=== PATIENT | female | born 1995 | race Caucasian/White ===

== ENCOUNTER 2025-01-31 16:55 | Inpatient (IN) ==
--- NOTE | 2025-01-31 17:09 | Emergency Department Note ---
Impression & Plan Spontaneous vaginal delivery, History of precipitous delivery, Breech delivery ED Provider Note NAME: MICHI MONTERO AGE: 29 SEX: F : 1995 ARRIVES VIA: Ambulance INFORMANT: Patient ED PROVIDER(S): Zeke Hinojosa DO CHIEF COMPLAINT: In labor HPI: Patient is a 29-year-old female G3 who presents to the ER in labor. She believes she is somewhere around 36 weeks . She has only had 1 visit to the OB prior to this. She has had no other care. She is taking no vitamins. EMS was called and en route she started pushing. ADDITIONAL HISTORY OBTAINED: Per HPI Chronic Medical/Social Conditions Affecting Care: Per HPI PAST MEDICAL HISTORY:See Below PAST SURGICAL HISTORY:See Below FAMILY HISTORY:See Below SOCIAL HISTORY:See Below HOME MEDICATIONS:See Below ALLERGIES:See Below VITALS:See Below PHYSICAL EXAMINATION: GENERAL: Sitting up in stretcher, alert, yelling with child laying on stretcher and cord attached EYE EXAM: normal conjunctiva. OROPHARYNX:mucous membranes are moist LUNGS: Clear to auscultation. Normal chest wall mechanics HEART: no murmurs, S1 normal and S2 normal ABDOMEN: abdomen soft, non-tender, normo-active bowel sounds, no masses, no rebound or guarding. : No obvious external tears. Placenta still in the vagina with cord attached to child who is crying UPPER EXTREMITIES: upper extremities are grossly normal. LOWER EXTREMITIES: No pitting edema. NEURO EXAM: Normal sensorium, cranial nerves II-XII grossly intact, normal speech, no gross weakness of arms, no gross weakness of legs. MEDICAL DECISION MAKING: Patient is a 29-year-old female G3 at unknown gestation who is felt to be around 36 weeks who presented to EMS in active labor. She delivered just that she arrived to the ambulance bay. I did present and evaluate her in the ambulance. Child was suctioned and an umbilical cord was clamped. She was transferred to the ER. Umbilical cord was cut by myself at bedside. Patient was transferred to our stretcher and baby was moved into the warmer. I performed gentle massage on the fundus of the uterus and it did tighten up/become firm. OB presented at bedside and delivered the placenta. Please see Dr. Unger note for further details. There is no obvious large vaginal tear that I was able to visualize externally. Patient did not have a significant amount of bleeding.Patient was transferred to L&D. Consults/Care Managements Discussions: Per MDM Triage Nursing notes reviewed. Limited review of prior medical records performed Vital Signs: reviewed and remarkable for no significant abnormalities Differential diagnosis: Differential diagnoses includes but is not limited to gastritis, peptic ulcer disease, GERD, gallbladder disease, pancreatitis, small bowel obstruction, appendicitis, diverticulitis, hernia, urinary tract infection, torsion, perforation, trauma, infectious. ER treatment provided: See below Diagnostics interpreted by me include EKG and cardiac monitoring as listed below: -ECG: none -Laboratory studies:Interpreted by me as stated above in MDM and shown below. Imaging studies: Xrays: As interpreted by me:none CTs show: none Procedures: Umbilical cord: Umbilical cord was clamped on both ends. It was cut with sterile scissors by myself. Small amount of bleeding present following the cut. Good hemostasis following this. Patient and baby tolerated procedure well. Critical Care: None Past Med/Surg History Problem List (Updated 01/31/25 @ 18:50 by Zeke Hinojosa DO) Spontaneous vaginal delivery (Acute) Breech delivery (Acute) History of precipitous delivery (Acute) Medical History (Updated 01/31/25 @ 18:50 by Zeke Hinojosa DO) No significant past medical history Surgical History Hx of tonsillectomy Hx of cholecystectomy Family History Other No significant family history Social History Smoking Status: Former smoker Tobacco Type: Cigarettes Second Hand Exposure: No; Do You Dip or Chew Tobacco: No; Hx Alcohol Use: No Hx Substance Use: Yes Last Used Substance: Hours (ago) Last Used Substance Other:: This AM Preferred Language: Polish Communication Ability: Effective Transliterator Required: No Beliefs That Will Affect Care: None marital status: Single Current Living Situation: Family Current Living Situation Comment: With with mother, father, and two children Other Information That Helps Us Care for You: No Feels Safe at Home: Yes Safety Concerns: Feels Safe At This Time Assistive Devices: None Allergies Allergies Allergy/AdvReac Type Severity Reaction Status Date / Time No Known Allergies Allergy Verified 12/21/19 21:45 Home Meds Home Medications Medication Instructions Recorded Confirmed No Known Home Medications 01/31/25 01/31/25 Results & Data (ED) Vital Signs Vital Signs - 24 hr 01/31/25 16:53 01/31/25 17:10 Temperature 36.6 C Pulse Rate 96 H Respiratory Rate 16 Blood Pressure 136/111 H Blood Pressure Mean 119 Sepsis New/Unexplained Change in Mental Status No Sepsis Action Taken by Nursing No Action Required Laboratory Data 01/31/25 18:13 Administered Medications Oxytocin (Pitocin 30 Units/Nss) 30 units in 500 mls @ 333.333 mls/hr IV .Q1H30M PRN; Protocol PRN Reason: Bleeding Control Stop: 02/03/25 17:38 Last Admin: 01/31/25 18:27 Dose: 20 units/hr, 333.3 mls/hr Documented By: FATIMAH Co-signed By: ORI Ibuprofen (Ibuprofen 600 Mg Tab) 600 mg PO Q4H PRN PRN Reason: Pain/RAWLS/Cramping/Fever Stop: 03/02/25 17:38 Last Admin: 01/31/25 18:31 Dose: 600 mg Documented By: FATIMAH Labetalol HCl (Labetalol Hcl 200 Mg Tab) 200 mg PO TID KADEEM Stop: 03/02/25 18:14 Last Admin: 01/31/25 18:24 Dose: 200 mg Documented By: FATIMAH Discontinued Medications Methylergonovine Maleate (Methylergonovine Maleate 0.2 Mg/Ml Amp) 0.2 mg IM ONE ONE Stop: 01/31/25 17:40 Last Admin: 01/31/25 17:40 Dose: 0.2 mg Documented By: FATIMAH Co-signed By: ORI Oxytocin (Oxytocin 10 Units/Ml Vial) Confirm Administered Dose 10 units .ROUTE .STK-MED ONE Stop: 01/31/25 16:59 Last Admin: 01/31/25 17:10 Dose: 10 units Documented By: FATIMAH Discharge Plan Visit Data Chief Complaint: OB/Uterine Contractions ED Provider: Zeke Hinojosa Discharge Problem: Spontaneous vaginal delivery, History of precipitous delivery, Breech delivery Patient Disposition: Admitted As Inpatient Condition: Fair Discharge Instructions Interventions: ED Discharge Assessment Last Done: 01/31/25 17:30
[2025-01-31] MEDS: OXYTOCIN 10 UNITS/ML VIAL ONE (17:10)
[2025-01-31] MEDS ORDERED: BENZOCAINE 20% SPRY 85 APPLN/85 GM CAN EXT PRN (17:39)
[2025-01-31] MEDS ORDERED: HYDROCORTISONE ACETATE 25 MG SUPP PR PRN (17:39)
[2025-01-31] MEDS ORDERED: DIPHTHER/TETAN/PERTUS Vaccine (Tdap, Adol/Adult) 0.5mL IM ONE (17:39)
[2025-01-31] MEDS ORDERED: ACETAMINOPHEN 325 MG TAB PO PRN (17:39)
[2025-01-31] MEDS ORDERED: ACETAMINOPHEN W/CODEINE #3 1 TAB PO PRN (17:39)
[2025-01-31] MEDS: METHYLERGONOVINE MALEATE 0.2 MG/ML AMP IM ONE (17:40)
--- NOTE | 2025-01-31 17:51 | History & Physical Report ---
Date of Service January 31, 2025 Assessment & Plan (1) History of precipitous delivery: Plan: Routine postdelivery care (2) Breech delivery: Plan: Routine postdelivery care Admission and Anticipated Discharge Date Admission Date: January 31, 2025 History of Present Illness Chief Complaint: Precipitous vaginal breech delivery in the ambulance Primary Care Provider: Primo Adan MD Patient is a 29-year-old 4 para 3. She has had 1 first trimester AB. She is in good general health. She is on no chronic pills or medications. She has had no care. She did not have any ultrasounds. She did not have any home test. States her periods are irregular. She is unsure when her last menstrual period was she thinks it may have been in September. She has a history of a bicornuate uterus. She delivered her first 2 children in the hospital with care. Her first child was born 2020 was a male. weight 6 pounds 5 ounces at 37 weeks gestation. She was induced for preeclampsia. She pushed about 45 minutes. Second child was born 2022 female 6 pounds even. Induction at 37 weeks for preeclampsia pushed for 4 minutes. Patient states that she did not physically look until about a month ago. She started in hard labor about 2 hours prior to arriving at the hospital. And she had a precipitous double footling breech delivery in the ambulance. She stated at that time that the did not cry immediately but cried after suctioning. OB team was present in the ER when she arrived. And she arrived w ith the baby on the litter connected to the umbilical cord. At that time the umbilical cord was cut and the infant was transferred to the [facility] where he was cared for. Placenta was removed intact in the ER. She was given IV Pitocin. Uterus contracted nicely and vaginal bleeding was minimal. She was then taken to maternity for inspection of the perineum. On maternity perineum was intact there were no lacerations. Bleeding was well-controlled. Allergies Allergy/AdvReac Type Severity Reaction Status Date / Time No Known Allergies Allergy Verified 12/21/19 21:45 Home Medications Medication Instructions Recorded Confirmed Type No Known Home Medications 01/31/25 01/31/25 History Past Med/Surg History Problem List (Updated 01/31/25 @ 17:51 by Alan Cortez MD) Breech delivery History of precipitous delivery Medical History (Updated 01/31/25 @ 17:51 by Alan Cortez MD) No significant past medical history Surgical History (Updated 01/31/25 @ 17:48 by Justine Villanueva RN) Hx of tonsillectomy Hx of cholecystectomy Family History Other No significant family history Social History Smoking Status: Unknown if ever smoked Preferred Language: [place] Communication Ability: Effective marital status: Single Feels Safe at Home: Yes Physical Exam Physical Exam: Patient appeared to be a well-developed well-nourished 29-year-old female alert oriented x 3 in distress secondary to labor pains. Heart had a regular rhythm S1 and S2 are normal. Lungs are clear to auscultation and percussion. Trachea was midline there was no cervical adenopathy. Breast exam was normal. Abdomen was soft and nontender. Status post delivery of the . No calf tenderness. Inspection of the perineum revealed no lacerations. Bimanual exam revealed the bleeding to be well-controlled 1 or 2 clots were removed. Results & Data Results & Data Vital Signs (Past 12 Hours) Vital Signs Pulse BP Pulse Ox 01/31/25 17:40 86 152/99 H 99 01/31/25 17:39 83 94 01/31/25 17:35 81 100 01/31/25 17:31 82 100 01/31/25 17:27 96 H 01/31/25 17:26 90 100 01/31/25 17:25 82 149/95 H 01/31/25 17:20 87 100 01/31/25 16:53 96 H 136/111 H Medications Administered IV Pitocin. IM Methergine.
--- NOTE | 2025-01-31 17:56 | Consultation ---
Date of Consultation January 31, 2025 History of Present Illness Requesting Physician: Zeke Hinojosa Reason for Consultation: Precipitous delivery in the ambulance prior to arriving at the emergency room Attending Physician: Alan Cortez MD History of Present Illness Patient had a spontaneous vaginal breech delivery in the ambulance prior to arriving at the emergency room. We were called down prior to the ambulance arriving at the emergency room to deliver any necessary care. On arrival the had already been delivered was attached to the cord . After she arrived the cord was clamped and cut. Infant was transferred for resuscitative care. With fundal massage the placenta was removed intact. IV Pitocin was given. IM Methergine was ordered. After delivery of placenta vaginal bleeding was minimal. Patient was then transferred to the fourth floor for inspection of the perineum further exam. Allergies Allergy/AdvReac Type Severity Reaction Status Date / Time No Known Allergies Allergy Verified 12/21/19 21:45 Home Medications Medication Instructions Recorded Confirmed Type No Known Home Medications 01/31/25 01/31/25 History Patient History Medical History (Updated 01/31/25 @ 17:51 by Alan Cortez MD) No significant past medical history Surgical History Hx of tonsillectomy Hx of cholecystectomy Family History Other No significant family history Social History Smoking Status: Unknown if ever smoked Preferred Language: Kazakh Communication Ability: Effective marital status: Single Feels Safe at Home: Yes Physical Exam Physical Exam: Patient appeared to be well-developed well-nourished 29-year-old white female alert oriented x 3 in distress secondary to labor pains. Heart had a regular rhythm S1 and S2 were normal. Lungs are clear to auscultation percussion. Trachea was midline there was no cervical adenopathy. Abdomen was nontender following delivery of the infant and placenta. No calf tenderness. Inspection of the perineum revealed moderate amount of bleeding no lacerations. Results & Data Vital Signs (Past 12 Hours) Vital Signs Pulse BP Pulse Ox 01/31/25 17:51 82 100 01/31/25 17:45 84 100 01/31/25 17:40 86 152/99 H 99 01/31/25 17:39 83 94 01/31/25 17:35 81 100 01/31/25 17:31 82 100 01/31/25 17:27 96 H 01/31/25 17:26 90 100 01/31/25 17:25 82 149/95 H 01/31/25 17:20 87 100 01/31/25 16:53 96 H 136/111 H
[2025-01-31] MEDS: LABETALOL HCL 200 MG TAB PO SCH (18:24)
[2025-01-31] MEDS: OXYTOCIN 30 UNITS/NSS 30 UNITS/500 ML BAG IV PRN (18:27)
[2025-01-31] MEDS: IBUPROFEN 600 MG TAB PO PRN (18:31)
[2025-01-31 18:35] LABS: Hematocrit (blood only) 39.3 % (37.0-47.0); Hemoglobin 13.2 g/dl (12.0-16.0); Mean Corpuscular Hemoglobin 29.3 pg (25.0-34.0); Mean Corpuscular Volume 87.1 fL (80.0-100.0); Platelet Count 311 K/uL (130-400); RDW Standard Deviation 38.7 fL (36.4-46.3); Red Blood Count 4.51 M/uL (4.20-5.40); White Blood Count 19.24 K/ul (4.8-10.8)
[2025-01-31 18:51] LABS: Amphetamines+Metham, Urine Pos (Neg); MDMA (Ecstacy), Urine Pos (Neg); Marijuana, Urine Pos (Neg)
[2025-01-31 19:19] LABS: Rubella IgG Qnt 48.0 IU/mL
[2025-01-31 19:45] LABS: Hep B Surface Ag with confirm Negative (Negative)
[2025-01-31 19:50] LABS: Hep C Ab Rflx HepCQuant RNA Negative (Negative)
[2025-01-31] MEDS: DOCUSATE SODIUM 100 MG CAP PO SCH (21:37)
[2025-02-01 06:39] LABS: Hematocrit (blood only) 32.8 % (37.0-47.0); Hemoglobin 11.2 g/dl (12.0-16.0); Mean Corpuscular Hemoglobin 29.4 pg (25.0-34.0); Mean Corpuscular Volume 86.1 fL (80.0-100.0); Platelet Count 288 K/uL (130-400); RDW Standard Deviation 38.2 fL (36.4-46.3); Red Blood Count 3.81 M/uL (4.20-5.40); White Blood Count 14.70 K/ul (4.8-10.8)
--- NOTE | 2025-02-01 08:09 | Obstetrical Progress Note ---
Date of Service February 01, 2025 Assessment & Plan Admission and Anticipated Discharge Date Admission Date: January 31, 2025 Subjective Patient is seen and examined. She feels well, no complaints. Ambulating without dizziness Voiding without difficulty Tolerating regular diet with out N&V Bleeding is minimal No RAWLS/ Change in vision/fever/ chills/ CP/ SOB/ N&V/ Leg pain Plans to formulafeed, baby is in [place] [facility] [place] Vital Signs Temp Pulse Resp BP Pulse Ox O2 Del Method 02/01/25 07:35 36.5 C 65 18 142/90 H 100 Room Air 02/01/25 03:25 36.7 C 72 16 124/83 98 Room Air 01/31/25 23:45 36.4 C L 61 16 128/86 99 Room Air 01/31/25 21:40 36.4 C L 67 16 131/89 99 Room Air Lab Results 01/31/25 01/31/25 02/01/25 Range/Units 18:10 18:13 06:11 WBC 19.24 H 14.70 H (4.8-10.8) K/ul RBC 4.51 3.81 L (4.20-5.40) M/uL Hgb 13.2 11.2 L (12.0-16.0) g/dl Hct 39.3 32.8 L (37.0-47.0) % MCV 87.1 86.1 (80.0-100.0) fL MCH 29.3 29.4 (25.0-34.0) pg MCHC 33.6 34.1 (32.0-36.0) g/dL RDW Std Deviation 38.7 38.2 (36.4-46.3) fL RDW Coeff of Jeff 12.3 12.3 (11.5-14.5) % Plt Count 311 288 (130-400) K/uL MPV 11.8 11.9 (9.4-12.4) fL Urine Opiates Screen Neg (Neg) Ur Methadone, Qual Neg (Neg) Urine Fentanyl Screen Neg (Neg) Urine Barbiturates Neg (Neg) Ur Phencyclidine (PCP) Neg (Neg) U Amphetamin/Meth Scrn Pos H (Neg) MDMA (Ecstasy) Screen Pos H (Neg) U Benzodiazepines Scrn Neg (Neg) Ur Cocaine Metabolite Neg (Neg) U Marijuana (THC) Screen Pos H (Neg) Treponema pallidum Ab Negative (Negative) Hep Bs Antigen Negative (Negative) Hepatitis C Antibody Negative (Negative) HIV 1&2 Ab/P24 Ag 4thGn Negative (Negative) Rubella IgG Antibody Immune (Immune) Rubella IgG Ab Index 48.0 IU/mL Blood Type A Positive PE: General: Alert, orientedx3, NAD Abd: soft, NT, fundus firm, below Umbilicus Perineum intact, Lochia rubra minimal Ext; NT, no edema AP: 29 yo s/p precipitous breech delivery, , ppd# 1 VSS Afebrile doing well Elevated BP pp, on Labetalol Desires d/c today to see baby Continue routine care All questions were answered D/C home this afternoon Results & Data Vital Signs (Past 12 Hours) Vital Signs Temp Pulse Resp BP Pulse Ox O2 Del Method 02/01/25 07:35 36.5 C 65 18 142/90 H 100 Room Air 02/01/25 03:25 36.7 C 72 16 124/83 98 Room Air 01/31/25 23:45 36.4 C L 61 16 128/86 99 Room Air 01/31/25 21:40 36.4 C L 67 16 131/89 99 Room Air
[2025-02-01] MEDS: PRENATAL VITAMIN 1 TAB PO SCH (08:47)
[2025-02-01 13:01] VITALS: TEMP 97.5
[2025-02-01 15:45] VITALS: BP 137/93; PULSE 82; RESP 18; O2SAT 96
== END 2025-02-01 16:52 | disposition home or self-care (01) | DRG 776 ==
LOC: ED 16:55 → 4S1 17:17 → 4E2 21:31